=== PATIENT | female | born 1990 | race Caucasian/White ===

== ENCOUNTER 2024-02-03 08:33 | Outpatient (CLI) | payer OTHER, SELFPAY ==
--- NOTE | 2024-02-03 11:39 | WPDNEUROLOGY ---
Neurology EEG Report General Information Date of Study: 02/03/24 TEST electroencephalogram DIAGNOSIS memory lapses CONDITION OF RECORDING neurodiagnostic lab EEG NUMBER [id number] CLINICAL HISTORY memory lapses EEG DESCRIPTION during wakefulness the background activity consists of posterior dominant alpha rhythm at 11 hertz with an amplitude of 30-40 microvolts which appears moderately formed and reactive to eye opening. Anteriorly low amplitude mixed frequency activity was seen. There is a moderate anteroposterior gradient. Muscle tension artifacts persisted in the anterior head region through a significant part of the recording. Hyperventilation was performed during which no significant abnormal background changes were seen. Photic stimulation was performed during which no driving response was noted. No abnormal changes were observed. Patient did not progress to stage 2 sleep. IMPRESSION This is a normal EEG obtained during awake state.
== END 2024-02-03 08:34 | disposition home or self-care (01) ==
PROVIDERS: PCP Emergency Medicine; Visit Provider Emergency Medicine
DX: R41.3 Other amnesia (principal)
CPT/HCPCS: 95816

== ENCOUNTER 2024-09-07 08:13 | Outpatient (CLI) | payer OTHER, SELFPAY ==
--- NOTE | ~2024-09-07 | MR_ITS ---
EXAMINATION: MR cervical spine wo con DATE: 09/07/2024 09:04 INDICATION: Cervical radiculopathy TECHNIQUE: Magnetic resonance imaging (MRI) of the cervical spine was performed without intravenous c ontrast. Sequences included sagittal T2-weighted FSE, sagittal T2-weighted FS FSE, sagittal T1-weight ed FSE, axial MERGE and axial T2-weighted FSE. COMPARISON: None FINDINGS: 1 focal mild reversal of the normal cervical lordosis. Vertebral body heights are normal. Vertebral body heights are normal. Bone marrow signal intensity is normal. Minimal decreased disc signal at an d mild disc height loss at C2-C3 through C5-C6. Cord signal intensity is normal. Cervical soft tissue s are unremarkable. The following disc levels are specifically discussed: C2-C3: The disc does not extend beyond the endplate margin. There is no uncovertebral joint osteoarth ritis. There is mild bilateral facet joint osteoarthritis. There is no neural foraminal stenosis. The re is no central canal stenosis. C3-C4: The disc does not extend beyond the endplate margin. There is mild left and moderate right unc overtebral joint osteoarthritis. There is mild right facet joint osteoarthritis. There is mild to mod erate right neural foraminal stenosis. There is no central canal stenosis. C4-C5: The disc does not extend beyond the endplate margin. There is mild bilateral uncovertebral ferny nt osteoarthritis. There is mild right facet joint osteoarthritis. There is mild right neural foramin al stenosis. There is no central canal stenosis. C5-C6: Disc is mildly bulging There is mild right and moderate left uncovertebral joint osteoarthriti s. There is mild bilateral facet joint osteoarthritis. There is mild right and mild to moderate left neural foraminal stenosis. There is no central canal stenosis. C6-C7: Disc is mildly bulging. There is mild left uncovertebral joint osteoarthritis. There is mild b ilateral facet joint osteoarthritis. There is minimal left neural foraminal stenosis. There is no alan tral canal stenosis. C7-T1: The disc does not extend beyond the endplate margins. There is mild left uncovertebral joint o steoarthritis. There is mild to moderate bilateral facet joint osteoarthritis. There is mild left maurilio ral foraminal stenosis. There is no central canal stenosis. IMPRESSION: 1. Mild cervical spondylosis. Reviewed, dictated and finalized at location B.
--- OUTSIDE RECORDS SUMMARY | 2024-09-07 08:20 | XMS_ITS | Data Portability ---
Author Organization [facility], Main Office Address [address] [place] [address] Care Team Providers Care Teaching Specialists Name Role Phone LUC LEZAMA Primary Care Provider LUC LEZAMA Referring Provider Assessment Encounter Date Assessment Date Assessment LastModified by Organization Details LastModified Time 06/19/2024 06/19/2024 34-year-old patient presents today with bilateral hand pain, numbness, and weakness that has been going on for 1 year but has recently gotten worse. She denies any injury. 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 She states that being at work exacerbates her symptoms. She presented to the emergency room due to pain and was prescribed prednisone and naproxen. She states that she took both of these and they did not help. Her right side is worse than her left, 7/10 pain. She feels like the pain shoots up her right arm into the shoulder, causing tingling and weakness, whereas the pain on her left is just in the wrist and hand. review of systems per patient questionnaire Imaging: X-rays reviewed of bilateral hands show no acute bony abnormality or fracture. Preserved joint spaces. physical exam: Sensation intact throughout bilaterally. Positive Phalen's and Tinel's bilaterally, right worse than left. Positive Tinel's at right elbow. Positive Spurling's on the right. 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 She likely has bilateral carpal tunnel syndrome as well as a pinched nerve in the neck that is causing the pain in her right arm. For treatment we will give her bilateral wrist braces to wear at night. We discussed trying to keep the elbow straight at night as well. she can continue to take naproxen. We discussed risks and benefits of a cortisone injection into the right wrist. She elected to proceed with this today, it was given without issue. We will order physical therapy to work on the neck and right arm. If she is still experiencing symptoms after therapy we will likely refer her to a youth care specialist. [email or web address] Not available 06/19/2024 12:13:08 07/22/2024 07/22/2024 34-year-old female presents for follow-up of her bilateral hands. She has a numbness and tingling bilaterally. We did a cortisone injection for the right side and had her use braces. She reports the left carpal tunnel symptoms have improved. She still has significant numbness and tingling throughout the entire right arm. The cortisone injection last time into the wrist did not help at all. She still has pain with movement of the neck She has positive Spurling's which recreates all of her symptoms. She has negative Tinel's and Phalen's at the wrist. Negative Tinel's at the elbow We discussed that given her failure to improve with injection and her exam findings, she has symptoms coming from a pinched nerve in her neck. We will refer to a youth care specialist. We will also give her a course of meloxicam. We will see her back after the spine evaluation as needed. She is in agreement with the plan. [email or web address] Not available 07/22/2024 09:25:30 Plan of Treatment Reminders Order Date Submit Date Provider Last Modified By Organization Details Last Modified Time Details Appointments None recorded. Lab None recorded. Referral orthopedic spine surgeon referral - Please contact pt to schedule for neck pain/upper back pain. Thanks 2024 025 EVELINA Gupta MD, [address], [facility] [place], [address], 12:12:00 physical therapist referral - please contact patient to schedule 2024 025 [facility], [address], [place], [address], 10:20:14 occupation al therapist referral - Please contact patient to schedule 2024 025 [facility], [address], [place], [address], 09:30:44 Procedures injection/ aspiration joint/burs a (PROC) 2024 025 [email or web address] In-Office Order, Internal Use Only DO Not Attach Compendium DO Not Attach Compendium, Do Not Delete/merge, [id number] 09:32:41 Surgeries None recorded. Imaging None recorded. Medication Orders Mobic 15 mg tablet 2024 025 [email or web address] [id number], [address] [place], [place], [id number], 5 09:34:19 bupivacain e HCl 0.5 % (5 mg/mL) injection solution 2024 025 [place] [address] [id number], [address] [place], [place], [id number], 5 12:59:29 Kenalog 10 mg/mL suspension for injection 2024 025 [place] [address] [id number], [address] [place], [place], [id number], 12:59:29 Patient TargetsNo targets recorded. Patient InstructionsNo instructions recorded. Reason for Referral Physical Therapist Referral for Neck pain please contact patient to schedule Referring Physician: Lisa Carranza, Orthopedic Surgery, Encounter Date: 06/19/2024 Occupational Therapist Refer ral for Pain of bilateral hands Please contact patient to schedule Referring Physician: Lisa Carranza, Orthopedic Surgery, Encounter Date: 06/19/2024 Orthopedic Spine Surgeon Ref erral for Pain of bilateral hands neck Please contact pt to schedule for neck pain/upper back pain. Thanks Referring Physician: Jonas Trinidad, Orthopedic Surgery, Encounter Date: 07/22/2024 Results Created Date Observation Date Name Description Value Unit Range Abnormal Flag Note LastModifiedBy Organization Detail LastModifiedTime 06/15/1906/13/2024 XR, hand, 3 or more view No observ ation record ed. [email or web address] Not Available 2024 16:47:01 07/07/19 25 07/06/2024 compl ete PFT w/ post [facility] hodil ator pat metry * No observ ation record ed. [email or web address] Not Available 2024 10:14:16 Result Notes None recorded. Problems Name Problem SNOMED Code Status Onset Date Resolution Date Notes Provider Name and Address Organization Details Recorded Time Left lower quadrant pain 366901420 Active Not Available [facility] 3 08:08:03 Pain of bilateral hands 5463376827621 9109 Active 2024 BILLY Verduzco, [employer] [facility] 5 09:15:08 Neck pain 90550493 Active 2024 Irene Arredondo null, [employer] 5 09:28:06 Cervical radiculopa thy 36214800 Active 2024 Jonas Trinidad MD [address] [facility], [address], [address] , [employer] 5 09:25:43 Problem Notes None recorded. Procedures Surgical History Date Name Laterality Status Provider Name and Address Organization Details Recorded Time 5 Ortho - Cortisone Injection completed Lisa Carranza NP [address], [place], [address], [employer] 06/19/2024 12:13:46 Imaging Results Imaging Date Name Status LastModified by Organization Details LastModified Time 06/13/2024 XR, hand, 3 or more view completed [email or web address] Information not available 06/15/2024 16:47:01 07/06/2024 complete PFT w/ post bronchodilator spirometry* completed [facility] Information not available 07/07/2024 10:14:16 Procedure Notes None recorded. Medical Equipment None Reported. Medications Name Sig Start Date Stop Date Status Note LastModified by Organization Details LastModified Time buspirone 5 mg tablet TAKE 1 TABLET BY MOUTH ONCE DAILY FOR 1 WEEK THEN INCREASE TO 1 TABLET TWICE DAILY IF TOLERATIN G 07/28 completed Not Available Not Available Not Available ibuprofen 800 mg tablet TAKE 1 TABLET BY MOUTH EVERY 8 HOURS NEEDED FOR PAIN active Not Available Not Available No t Available hydrocodone 5 mg-acetamin ophen 325 mg tablet TAKE 1 TABLET BY MOUTH EVERY 6 HOURS NEEDED FOR PAIN active Not Available Not Available No t Available meloxicam 15 mg tablet TAKE 1 TABLET BY MOUTH EVERY DAY active Not Available Not Available No t Available ondansetron HCl 4 mg tablet TAKE 1 TABLET BY MOUTH EVERY 8 HOURS NEEDED active Not Available Not Available No t Available bupivacaine HCl 0.5 % (5 mg/mL) injection solution Take 5 mg by injection route. 2024 active Not Available Not Available Not Avai lable prednisone 20 mg tablet TAKE 2 TABLETS BY MOUTH DAILY FOR 5 DAYS. START 06/14/202406/19 completed Not Available Not Available Not Available penicillin V potassium 500 mg tablet 03/27 completed Not Available Not Available Not Available metronidazo le 500 mg tablet 03/27 completed Not Available Not Available Not Available Kenalog 10 mg/mL suspension for injection Take 10 mg by injection route. 2024 active [facility]: [phone] Not Available Not Available Not Available cephalexin 500 mg capsule TAKE 1 CAPSULE BY MOUTH 4 TIMES A DAY 03/27 completed Not Available Not Available Not Available ferrous sulfate 325 mg (65 mg iron) tablet 06/16 completed Not Available Not Available Not Available omeprazole 20 mg capsule,del ayed release TAKE 1 CAPSULE BY MOUTH EVERY DAY active Not Available Not Available No t Available ibuprofen 600 mg tablet TAKE 1 TABLET BY MOUTH EVERY 6 HOURS 06/16 completed Not Available Not Available Not Available methylpredn isolone 4 mg tablets in a dose pack FOLLOW PACKAGE DIRECTION S 06/19 completed Not Available Not Available Not Available albuterol sulfate HFA 90 mcg/actuati on aerosol inhaler INHALE 2 PUFFS BY MOUTH FOUR TIMES DAILY NEEDED active Not Available Not Available No t Available ondansetron 4 mg disintegrat ing tablet DISSOLVE 1 TABLET ON TONGUE EVERY 6 HOURS NEEDED FOR NAUSEA 03/27 completed Not Available Not Available Not Available doxycycline hyclate 100 mg tablet TAKE 1 TABLET BY MOUTH TWICE DAILY FOR 10 DAYS 06/19 completed Not Available Not Available Not Available loratadine 10 mg tablet TAKE 1 TABLET BY MOUTH EVERY DAY 06/16 completed Not Available Not Available Not Available naproxen 500 mg tablet TAKE 1 TABLET BY MOUTH EVERY 12 HOURS WITH FOOD NEEDED active Not Available Not Available No t Available cyclobenzap rine 5 mg tablet TAKE 1 TABLET BY MOUTH EVERY 8 HOURS NEEDED FOR MUSCLE PAIN 06/19 completed Not Available Not Available Not Available Pepcid AC 20 mg tablet 06/16 completed Not Available Not Available Not Available guaifenesin ER 1,200 mg tablet, extended release 12 hr TAKE 1 TABLET BY MOUTH EVERY 12 HOURS NEEDED FOR CONGESTIO N 06/19 completed Not Available Not Available Not Available PrenaPlus 27 mg iron-1 mg tablet 03/27 completed Not Available Not Available Not Available Vitals Date Recorded Body height Body mass index (BMI) Body weight Pain severity - 0-10 verbal numeric rating [Score] - Reported Provider Name and Address Organization Details Last Updated DateTime 06/19/2024 147.32 cm 28.8 kg/m2 14783.75 g 7 BILLY Verduzco [facility] 06/19/2024 09:12:51 Date Recorded Body height Body mass index (BMI) Body weight Provider Name and Address Organization Details Last Updated DateTime 07/22/2024 147.32 cm 28.8 kg/m2 88388.75 g Graciela Jackman CNA [facility] 07/22/2024 09:01:16 Social History Question Answer Notes LastModified by Organizat ion Details LastModified Time Tobacco Smoking Status Unknown If Ever Smoked BILLY Verduzco null, [facility] 06/19/2024 09:14:36 What Is Your Level Of Alcohol Consumption? None [email or web address] Information not available 06/19/2024 What Was The Date Of Your Most Recent Tobacco Screening? 06/19/2024 [email or web address] Information not available 06/19/2024 Sex: Unknown Functional Status None recorded. Mental Status None recorded. Family History Relationship Description Onset Age of this Age Resolved Age Notes LastModified by Organization Details LastModified Time Maternal Grandfather Family history of malignant neoplasm [email or web address] Not available 2024 09:14:10 Mother Hypertensive disorder [email or web address] Not available 2024 09:14:20 Medical History No medical history recorded. Gynecological HistoryNo gynecological history recorded. Obstetrics History GPAL:G 0 P 0 0 0 0 Past Encounters Encounter ID Performer Location Encounter Start Date Encounter Closed Date Diagnosis/Indication Diagnosis SNOMED-CT Code Diagnosis ICD10 Code Diagnosis Note [id number] Lisa Carranza NP [facility] [place] [facility] [place] [address] [place] [address] 06/19/2024 08:58:05 06/19/2024 09:37:33 Pain of bilateral hands 2735473992 [id number] M79.643 M25.532 M25.531 Neck pain 41737991 M54.2 [id number] Jonas Trinidad MD [facility] [place] [facility] [place] [address] [facility] [address] [place] [address] 07/22/2024 08:59:46 07/22/2024 09:22:39 Pain of bilateral hands [id number] M79.643 M25.532 M25.531 Cervical radiculopathy 81424475 M54.12 Health Concerns Section Related Observation LastModified by Organization Detai ls LastModified Time None Recorded Concern Status LastModified by Organization Details LastModified Time None Recorded Advance Directives Directive None Recorded Payers Encounter Date Sequence Insurance Name Policy Number Policy Hu Covered Member ID Hu Member ID Guarantor Name 06/19/2024 1 [facility] ON OR AFTER 11/10/20 (MEDICAID REPLACEMENT - HMO) Mounika Silva [id number] Mounika Silva 07/22/2024 1 [facility] - DOS ON OR AFTER 20 (MEDICAID REPLACEMENT - HMO) Mounika Silva [id number] Mounika Silva OBGyn Episode No OBEpisode recorded.
--- OUTSIDE RECORDS SUMMARY | 2024-09-07 08:20 | XMS_ITS | Clinical Summary ---
Author Organization [facility] Address [facility] [place] [address] Care Team Providers Care Sewage Plant Operator Name Role Phone Unknown, Notinfile Primary Care Provider Unavail able Allergies No known active allergies Medications benzonatate (TESSALON) 100 mg capsuleIndicati ons:Cough Take 1 capsule (100 mg total) by mouth 3 (three) times a day as needed for cough 20 capsule 2 Active busPIRone (BUSPAR) 5 mg tablet TAKE 1 TABLET BY MOUTH ONCE DAILY FOR 1 WEEK THEN INCREASE TO 1 TABLET TWICE DAILY IF TOLERATING 4 Active methylPREDNISol one (MEDROL DOSEPACK) 4 mg Dosepack FOLLOW PACKAGE DIRECTIONS 5 Active ibuprofen (ADVIL,MOTRIN) 800 mg tablet Take by mouth every 8 (eight) hours as needed 5 Active cyclobenzaprine (FLEXERIL) 5 mg tablet TAKE 1 TABLET BY MOUTH EVERY 8 HOURS NEEDED FOR MUSCLE PAIN Active HYDROcodone-dodie taminophen (NORCO) 5-325 mg per tabletIndicatio ns:Pain Take 1 tablet by mouth every 6 (six) hours as needed for pain 6 tablet 5 Active Social History Tobacco Use Types Packs/Day Years Used Date Smoking Tobacco: Never Tobacco Cessation:Counseling Given: Not Answered Personal Safety Answer Date Recorded Have you ever been in or are you currently in a harmful physical or emotional relationship or is someone making you feel afraid or unsafe? Denies 05/31/2024 Comments No Sex and Gender Information Value Date Recorded Sex Assigned at Not on file Legal Sex Female 11:03 AM CDT Gender Identity Not on file Sexual Orientation Not on file Obstetrics History Last Filed Vital Signs Vital Sign Reading Time Taken Comments Blood Pressure 96/65 05/31/2024 12:30 PM COLORING MACHINE OPERATOR Pulse 53 05/31/2024 12:30 PM COLORING MACHINE OPERATOR Temperature 36.4 C (97.6 F) 05/31/2024 9:35 AM COLORING MACHINE OPERATOR Respiratory Rate 16 05/31/2024 11:00 AM COLORING MACHINE OPERATOR Oxygen Saturation 99% 05/31/2024 12:30 PM COLORING MACHINE OPERATOR Inhaled Oxygen Concentration - - Weight 62.6 kg (138 lb) 05/31/2024 9:35 AM COLORING MACHINE OPERATOR Height 147.3 cm (4' 10 ) 05/31/2024 9:35 AM COLORING MACHINE OPERATOR Body Mass Index 28.84 05/31/2024 9:35 AM COLORING MACHINE OPERATOR Plan of Treatment Health Maintenance Due Date Last Done Comments Cervical Cancer Screening 1991 Depression Screening 1991 Hepatitis C Screening 1991 Varicella Vaccines (1 of 2 - 13+ 2-dose series) 01/11/2004 Regular Well Visit/Exam 18-64 2009 DTaP/Tdap/Td Vaccine (7 - Td or Tdap) 02/17/2023 02/17/2013, 12/09/1995, 08/16/1992, Additional history exists Influenza Vaccine (#1) 2024 Hepatitis B Screening Completed 09/02/2002 , 03/25/2002, 02/18/2002 HPV Vaccines Aged Out No longer eligi ble based on patient's age to complete this topic Pneumococcal vaccine <65 Aged Out No longer eligible based on patient's age to complete this topic Insurance [facility] Care Teams Sewage Plant Operator Relationship Specialty Start Date End Date Unknown, Notinfile PCP - General 05/31/24
--- OUTSIDE RECORDS SUMMARY | 2024-09-07 08:20 | XMS_ITS | Referral Summary ---
Author Organization [facility] Address [facility] [place] [address] Care Team Providers Care Classroom Paraprofessional Name Role Phone Unknown, Notinfile Primary Care [...] on file Sexual Orientation Not on file Last Filed Vital Signs Vital Sign Reading Time Taken Comments Blood Pressure 96/65 05/31/2024 12:30 PM MACHINE PLUG SHAPER Pulse 53 05/31/2024 12:30 PM MACHINE PLUG SHAPER Temperature 36.4 C (97.6 F) 05/31/2024 9:35 AM MACHINE PLUG SHAPER Respiratory Rate 16 05/31/2024 11:00 AM MACHINE PLUG SHAPER Oxygen Saturation 99% 05/31/2024 12:30 PM MACHINE PLUG SHAPER Inhaled Oxygen Concentration - - Weight 62.6 kg (138 lb) 05/31/2024 9:35 AM MACHINE PLUG SHAPER Height 147.3 cm (4' 10 ) 05/31/2024 9:35 AM MACHINE PLUG SHAPER Body Mass Index 28.84 05/31/2024 9:35 AM MACHINE PLUG SHAPER Plan of Treatment Not on file Insurance Care Teams Classroom Paraprofessional Relationship Specialty Start Date End Date Unknown, Notinfile PCP - General 05/31/24
== END 2024-09-07 08:14 | disposition home or self-care (01) ==
LOC: ANHIMG 08:16
PROVIDERS: PCP Emergency Medicine; Visit Provider Nurse Practitioner Adult Health
DX: M47.22 Other spondylosis with radiculopathy, cervical region (principal)
CPT/HCPCS: 72141